=== PATIENT | female | born 1995 | race Caucasian/White ===

== ENCOUNTER 2017-09-19 07:31 | Emergency (ER) | payer OTHER ==
--- NOTE | 2017-09-19 07:48 | ED Physician Documentation ---
PD HPI NVD - Stated complaint Stated Complaint: VOMITTING BLOOD,STOMACH-CHEST PX,8WKS PG - Chief complaint Chief Complaint: Abd Pain - History obtained from History obtained from: Patient - History of Present Illness Timing - onset: Today Timing - details: Abrupt onset (she has had nausea at time with early . Had onset of nausea and vomited bilious emesis this morning, then had vomiting of red blood. She then felt that she was spitting up some wisps of blood after that for a few minutes. Had some epigastric pain moderately. Concerned about vomiting blood. Has not had further emesis. Still some nausea. She is early , about 8 1/2 weeks, and denies lower abd pain, vaginal bleeding nor discharge.) Associated symptoms: Abdominal pain, Hematemesis (once this morning after a bilious forceful emesis.), Loss of appetite. No: Fever, Chest pain, Melena Contributing factors: No: Sick contact, Bad food, Travel Similar symptoms before: No diagnosis (had an episode of upper abd pain few months ago thought to be gastritis but only hurt for few days and no vomiting with it.) Recently seen: Not recently seen Review of Systems Constitutional: denies: Fever, Chills Nose: denies: Rhinorrhea / runny nose, Congestion Throat: denies: Sore throat Respiratory: denies: Cough GI: reports: Abdominal Pain, Nausea, Vomiting. denies: Abdominal Swelling, Diarrhea, Bloody / black stool : denies: Dysuria, Frequency Neurologic: denies: Generalized weakness, Near syncope Endocrine: denies: Easy bruising / bleeding Immunocompromised: denies: Immunocompromised PD PAST MEDICAL HISTORY - Past Medical History Cardiovascular: None Respiratory: None Neuro: None Endocrine/Autoimmune: None GI: None - Present Medications Home Medications: Ambulatory Orders Medication Instructions Recorded Confirmed Ondansetron HCl [Zofran] 4 mg PO Q6H PRN #20 tablet 09/19/17 [id number]/Omega3/Dha/Fish Oil 1 tab PO DAILY 09/19/17 [ Gummies] Sucralfate 1 gm PO TID #15 tablet 09/19/17 raNITIdine [Zantac] 150 mg PO BID #30 tablet 09/19/17 - Allergies Allergies/Adverse Reactions: Allergies Allergy/AdvReac Type Severity Reaction Status Date / Time No Known Drug Allergies Allergy Verified 09/19/17 07:41 PD ED PE NORMAL - Vitals Vital signs reviewed: Yes - General General: Alert and oriented X 3, No acute distress, Well developed/nourished - HEENT HEENT: Moist mucous membranes, Pharynx benign - Neck Neck: Supple, no meningeal sign, No adenopathy - Cardiac Cardiac: RRR, No murmur - Respiratory Respiratory: Clear bilaterally - Abdomen Abdomen: Normal bowel sounds, Soft, Non distended, No organomegaly, Other (mild tender epigastric without guarding nor percussion tenderness. ) - Female Female : Deferred, Other (bedside U/S showed IUP at 8 weeks by CRL with normal gestational sac, no free fluid, and good heart rate. ) - Rectal Rectal: Deferred - Back Back: No CVA TTP - Derm Derm: Normal color, Warm and dry - Neuro Neuro: Alert and oriented X 3, No motor deficit, Normal speech - Psych Psych: Normal mood, Normal affect Results - Vitals Vitals: Vital Signs - 24 hr 09/19/17 09/19/17 07:38 09:30 Heart Rate 80 68 Respiratory 16 18 Rate Blood Pressure 121/73 108/91 H O2 Saturation 100 100 Oxygen O2 Source Room air - Labs Labs: Laboratory Tests 09/19/17 09/19/17 08:31 08:31 WBC 10.7 RBC 4.42 Hgb 12.9 Hct 38.6 MCV 87.3 MCH 29.1 MCHC 33.4 RDW 13.4 Plt Count 344 MPV 7.9 Neut # 7.9 H Lymph # 1.9 Latimer # 0.7 Eos # 0.2 Baso # 0.0 Absolute Nucleated RBC 0.00 Nucleated RBC % 0.0 Sodium 133 L Potassium 3.5 Chloride 102 Carbon Dioxide 24 Anion Gap 7.0 BUN 8 Creatinine 0.5 Estimated GFR (MDRD) 156 Glucose 89 Calcium 8.9 Total Bilirubin 0.4 AST 20 ALT 23 Alkaline Phosphatase 66 Total Protein 8.1 Albumin 3.9 Globulin 4.2 Albumin/Globulin Ratio 0.9 L Lipase 17 L PD MEDICAL DECISION MAKING - ED course Complexity details: reviewed results, considered differential (presume some gastritis and nausea related to . The red blood vomiting likely a mucosal tear from first emesis. She said she was spitting up some blood after emesis, so could even consider nasopharyngeal bleeding instead. ), d/w patient Departure - Departure Disposition: 01 Home, Self Care Clinical Impression: Hematemesis with nausea Gastritis Qualifiers: Gastritis type: other gastritis Chronicity: acute Gastritis bleeding: with bleeding Qualified Code(s): K29.01 - Acute gastritis with bleeding Qualifiers: Weeks of gestation: 8 weeks Qualified Code(s): Z3A.08 - 8 weeks gestation of Condition: Stable Record reviewed to determine appropriate education?: Yes Instructions: ED Gastritis, ED Bleed UGI Stable Follow-Up: MANUEL SWEENEY MD [Primary Care Provider] - Prescriptions: Ondansetron HCl [Zofran] 4 mg PO Q6H PRN #20 tablet PRN Reason: Nausea / Vomiting raNITIdine [Zantac] 150 mg PO BID #30 tablet Sucralfate 1 gm PO TID #15 tablet Comments: Drink lots of fluids. Presume your stomach is irritated with the vomiting that you had, and the abrupt bleeding likely was a small blood vessel that was irritated open. These will typically stop bleeding and do okay. Will treat the stomach irritation however with acid reducing medicine as well as something to coat it. I prescribed ranitidine twice daily for the next 2 weeks and sucralfate 3 times a day for the next 5 days. Use Tylenol if needed for pains. He likely will have some brief dark stools later today or tomorrow and then they should clear. Recheck if persistent vomiting, persistent dark stools or increased belly pain. Use ondansetron if needed for nausea. Follow-up with your primary care next week, call for an appointment. Discharge Date/Time: 09/19/17 09:35
[2017-09-19] MEDS ORDERED: LIDOCAINE VISCOUS 2% 15 ML UDC MM STA (08:16)
[2017-09-19] MEDS ORDERED: ACETAMINOPHEN 325 MG TABLET PO STA (08:16)
[2017-09-19] MEDS ORDERED: FAMOTIDINE 20 MG TABLET PO STA (08:16)
[2017-09-19] MEDS ORDERED: MAG HYDROX/AL HYDROX/SIMETH 30 ML UDC PO STA (08:16)
[2017-09-19 08:34] LABS: BASOPHILS % (AUTO) 0.4 %; EOSINOPHILS # (AUTO) 0.2 10^3/uL (0.0-0.7); EOSINOPHILS % (AUTO) 1.5 %; HGB - HEMOGLOBIN 12.9 g/dL (12.0-16.0); LYMPHOCYTES # (AUTO) 1.9 10^3/uL (1.5-3.5); LYMPHOCYTES % (AUTO) 17.3 %; MEAN CORPUSCULAR HEMOGLOBIN 29.1 pg (27.0-31.0); MEAN CORPUSCULAR HGB CONC 33.4 g/dL (32.0-36.0); MEAN CORPUSCULAR VOLUME 87.3 fL (81.0-99.0); MEAN PLATELET VOLUME 7.9 fL (7.9-10.8); MONOCYTES # (AUTO) 0.7 10^3/uL (0.0-1.0); MONOCYTES % (AUTO) 6.8 %; NEUTROPHILS # (AUTO) 7.9 10^3/uL (1.5-6.6); PLT - PLATELET COUNT 344 10^3/uL (130-450); RED BLOOD COUNT 4.42 10^6/uL (4.20-5.40); RED CELL DISTRIBUTION WIDTH 13.4 % (12.0-15.0); WHITE BLOOD COUNT 10.7 x10^3/uL (4.8-10.8)
[2017-09-19 08:53] LABS: ALBUMIN 3.9 g/dL (3.2-5.5); ALBUMIN/GLOBULIN RATIO 0.9 (1.0-2.2); BILIRUBIN,TOTAL 0.4 mg/dL (0.2-1.0); CALCIUM 8.9 mg/dL (8.5-10.3); CREATININE 0.5 mg/dL (0.4-1.0); TOTAL PROTEIN 8.1 g/dL (6.7-8.2)
[2017-09-19 09:31] VITALS: BP 108/91
== END 2017-09-19 09:35 | disposition home or self-care (01) ==
LOC: ED 07:31
DX: O99.611 Diseases of the digestive system complicating pregnancy, first trimester (principal); K29.01 Acute gastritis with bleeding; K92.0 Hematemesis; Z3A.08 8 weeks gestation of pregnancy
CPT/HCPCS: 36415; 80053; 83690; 85025; 99283; A9270

== ENCOUNTER 2018-04-09 21:05 | Outpatient (CLI) | payer OTHER ==
[2018-04-09 21:22] VITALS: BP 123/75
== END 2018-04-09 22:20 | disposition home or self-care (01) ==
LOC: WFO 21:05 → FBP 21:06 → WFO 22:20
PROVIDERS: ATTEND Obstetrics & Gynecology
DX: Z34.83 Encounter for supervision of other normal pregnancy, third trimester (principal)
CPT/HCPCS: 99213

== ENCOUNTER 2018-04-26 21:30 | Outpatient (CLI) | payer OTHER ==
[2018-04-26 23:26] VITALS: BP 122/73
== END 2018-04-26 23:00 | disposition home or self-care (01) ==
LOC: WFO 21:30 → FBP 21:32 → WFO 23:00
PROVIDERS: ATTEND Obstetrics & Gynecology
DX: Z34.03 Encounter for supervision of normal first pregnancy, third trimester (principal)
CPT/HCPCS: 99213

== ENCOUNTER 2018-05-15 23:01 | Emergency (ER) | payer OTHER ==
[2018-05-15 23:09] VITALS: BP 114/67
--- NOTE | 2018-05-15 23:14 | ED Physician Documentation ---
PD HPI FEVER - Stated complaint Stated Complaint: FEVER - Chief complaint Chief Complaint: Fever - History obtained from History obtained from: Patient - History of Present Illness Timing - onset: Last night Timing details: Abrupt onset Pain level now: 5 Associated symptoms: Chills, Sweats, Rash/skin lesion (left breast erythema). No: Dry cough, Productive cough Recently seen: Not recently seen - Additional information Additional information: fever Tmax 102 since last night associated with left breast pain, redness, swelling. She is breast feeding her 3-week old Review of Systems Constitutional: reports: Fever, Chills, Sweats Throat: denies: Sore throat Respiratory: reports: Reviewed and negative GI: reports: Reviewed and negative PD PAST MEDICAL HISTORY - Past Medical History Cardiovascular: None Respiratory: None Endocrine/Autoimmune: None GI: None - Past Surgical History Past Surgical History: No - Present Medications Home Medications: Ambulatory Orders Medication Instructions Recorded Confirmed Dicloxacillin Sodium 500 mg PO Q6HR #27 capsule 05/15/18 - Allergies Allergies/Adverse Reactions: Allergies Allergy/AdvReac Type Severity Reaction Status Date / Time No Known Drug Allergies Allergy Verified 05/15/18 23:08 - Social History Does the pt smoke?: No Smoking Status: Never smoker Does the pt drink ETOH?: No Does the pt have substance abuse?: No - Immunizations Immunizations are current?: Yes PD ED PE NORMAL - Vitals Vital signs reviewed: Yes - General General: Alert and oriented X 3, No acute distress, Well developed/nourished - Derm Derm: Other (left breast erythema (see below)) - Free text exam Free text exam: left breast (exam performed with environmental test technician: SHAUN Rooney): mild erythema, mild tend erness adjacent and immediately superior to left areola. No fluctuance, no palpable margins to suggest abscess Results - Vitals Vitals: Vital Signs - 24 hr 05/15/18 23:04 Temperature 100.1 C H Heart Rate 103 H Respiratory 16 Rate Blood Pressure 114/67 O2 Saturation 98 Oxygen O2 Source Room air PD MEDICAL DECISION MAKING - ED course Complexity details: considered differential, d/w patient Departure - Departure Disposition: 01 Home, Self Care Clinical Impression: Mastitis Condition: Good Instructions: ED Breast Infec Follow-Up: MANUEL SWEENEY MD [Primary Care Provider] - (3-4 days if symptoms have not improved) Prescriptions: Dicloxacillin Sodium 500 mg PO Q6HR #27 capsule Discharge Date/Time: 05/15/18 23:53
[2018-05-15] MEDS: DICLOXACILLIN 250 MG CAPSULE PO STA (23:50)
== END 2018-05-15 23:53 | disposition home or self-care (01) ==
LOC: ED 23:01
DX: N61.0 Mastitis without abscess (principal)
CPT/HCPCS: 99283; A9270

== ENCOUNTER 2019-01-12 17:38 | Emergency (ER) | payer OTHER ==
--- NOTE | 2019-01-12 21:32 | ED Physician Documentation ---
History of Present Illness - Stated complaint Stated Complaint: THROAT PX - Chief complaint Chief Complaint: Heent - Additonal information Additional information: This is a 23-year-old female who denies past medical history who presents with sore throat for several days. Patient initially began having some sore throat and fever 2 to 3 days ago, the sore throat has progressed to the point where now she has pain when she eats. When she swallows fluids she also has some pain. She denies change in her voice, but states that she is speaking softly because her throat is sore. She has not felt febrile today. She states the left side of her throat hurts more than the right. No cough, no congestion. No chest pain or shortness of breath, no breathing difficulty. Review of Systems Constitutional: reports: Fever Throat: reports: Sore throat Cardiac: denies: Chest pain / pressure Respiratory: denies: Dyspnea GI: denies: Abdominal Pain PD PAST MEDICAL HISTORY - Past Medical History Cardiovascular: None Respiratory: None Endocrine/Autoimmune: None GI: None - Past Surgical History Past Surgical History: No - Present Medications Home Medications: Ambulatory Orders Medication Instructions Recorded Confirmed Dicloxacillin Sodium 500 mg PO Q6HR #27 capsule 05/15/18 Clindamycin HCl [Clindamycin 300MG 300 mg PO TID #30 capsule 01/12/19 CAP] - Allergies Allergies/Adverse Reactions: Allergies Allergy/AdvReac Type Severity Reaction Status Date / Time No Known Drug Allergies Allergy Verified 01/12/19 17:56 - Social History Does the pt smoke?: No Smoking Status: Never smoker Does the pt drink ETOH?: No Does the pt have substance abuse?: No - Immunizations Immunizations are current?: Yes - POLST Patient has POLST: No PD ED PE NORMAL - Vitals Vital signs reviewed: Yes - General General: Alert and oriented X 3, No acute distress - HEENT HEENT: Other (Posterior pharynx is erythematous, tonsils are edematous bilaterally with exudates. Uvula is midline, there is no asymmetric swelling of the tonsillar pillars. Airway is widely patent. Anterior cervical lymphadenop athy present bilaterally.) - Neck Neck: Supple, no meningeal sign - Cardiac Cardiac: No murmur - Respiratory Respiratory: No respiratory distress - Abdomen Abdomen: Soft, Non distended - Derm Derm: Warm and dry - Extremities Extremities: No deformity - Neuro Neuro: Alert and oriented X 3 - Psych Psych: Normal mood, Normal affect Results - Vitals Vitals: Vital Signs - 24 hr 01/12/19 17:54 Temperature 37.9 C H Heart Rate 90 Respiratory 19 Rate Blood Pressure 116/75 O2 Saturation 100 Oxygen O2 Source Room air - Labs Labs: Laboratory Tests 01/12/19 17:58 Group A Strep Rapid Negative PD MEDICAL DECISION MAKING - ED course Complexity details: considered differential (Strep throat, tonsillitis, peritonsillar abscess, peritonsillar cellulitis, Waylon's angina, deep space infection, abscess) ED course: Patient presents with worsening sore throat, in the absence of other URI symptoms. Her strep is negative, but I have a high suspicion for a bacterial tonsillitis. Her tonsils appear symmetric at this time, I do not see signs of DOG GROOMER on exam, however given she has increased pain on the left side, fever, and exudates, I think she is at risk for DOG GROOMER and will treat with a course of clindamycin. She is not . She has excellent mobility of her jaw, no trismus, her vital signs are unremarkable, other than her temperature 37.9, she is well-appearing. I have low suspicion for deep space infection, abscess, and she has no clinical signs for Waylon's angina. She was given the first dose of clindamycin here, as well as 10 mg dose of dexamethasone for inflammation. I reviewed return precautions including worsening pain, swelling, difficult he breathing, difficulty drinking fluids, vomiting, or any other concerning symptoms. I recommended follow-up with her primary care provider. Patient agreed to this plan was discharged Departure - Departure Disposition: 01 Home, Self Care Clinical Impression: Pharyngitis Qualifiers: Pharyngitis/tonsillitis etiology: unspecified etiology Qualified Code(s): J02.9 - Acute pharyngitis, unspecified Condition: Good Instructions: ED Strep Pharyngitis Poss Follow-Up: MANUEL SWEENEY MD [Primary Care Provider] - Within 1 week (With any concerning symptoms) Prescriptions: Clindamycin HCl [Clindamycin 300MG CAP] 300 mg PO TID #30 capsule Comments: You were seen today for sore throat. I am concerned this may be due to strep or another bacterial infection. Please take the antibiotic prescribed, if you have worsening symptoms, any difficulty breathing, or inability to drink fluids, return to the emergency department.
[2019-01-12] MEDS ORDERED: CHERRY SYRUP 10 ML UDC PO ONE (21:47)
[2019-01-12] MEDS ORDERED: DEXAMETHASONE 10 MG/ML VIAL PO STA (21:47)
[2019-01-12] MEDS ORDERED: CLINDAMYCIN 150 MG CAPSULE PO STA (21:47)
[2019-01-12 22:32] VITALS: BP 130/73
== END 2019-01-12 22:32 | disposition home or self-care (01) ==
LOC: ED 17:38
DX: J02.9 Acute pharyngitis, unspecified (principal)
CPT/HCPCS: 87070; 87430; 99283; A9270

== ENCOUNTER 2019-07-04 05:27 | Emergency (ER) | payer OTHER ==
[2019-07-04] MEDS ORDERED: SODIUM CHLORIDE 0.9% 1,000 ML IV STA (06:28)
[2019-07-04] MEDS ORDERED: ONDANSETRON 4 MG/2 ML VIAL IVP STA (06:28)
[2019-07-04 06:45] LABS: BASOPHILS # (AUTO) 0.1 10^3/uL (0.0-0.1); BASOPHILS % (AUTO) 0.4 %; EOSINOPHILS # (AUTO) 0.1 10^3/uL (0.0-0.7); EOSINOPHILS % (AUTO) 0.6 %; HGB - HEMOGLOBIN 14.3 g/dL (12.0-16.0); LYMPHOCYTES # (AUTO) 1.3 10^3/uL (1.5-3.5); LYMPHOCYTES % (AUTO) 8.7 %; MEAN CORPUSCULAR HEMOGLOBIN 26.6 pg (27.0-31.0); MEAN CORPUSCULAR HGB CONC 32.1 g/dL (32.0-36.0); MEAN CORPUSCULAR VOLUME 82.7 fL (81.0-99.0); MEAN PLATELET VOLUME 9.9 fL (7.9-10.8); MONOCYTES # (AUTO) 0.8 10^3/uL (0.0-1.0); MONOCYTES % (AUTO) 5.5 %; NEUTROPHILS # (AUTO) 12.3 10^3/uL (1.5-6.6); NEUTROPHILS % (AUTO) 84.3 %; PLT - PLATELET COUNT 438 10^3/uL (130-450); RED BLOOD COUNT 5.38 10^6/uL (4.20-5.40); RED CELL DISTRIBUTION WIDTH 14.8 % (12.0-15.0); WHITE BLOOD COUNT 14.5 x10^3/uL (4.8-10.8)
[2019-07-04 06:58] LABS: ALBUMIN 4.2 g/dL (3.2-5.5); BILIRUBIN,TOTAL 0.6 mg/dL (0.2-1.0); CALCIUM 9.3 mg/dL (8.5-10.3); CREATININE 0.6 mg/dL (0.4-1.0); TOTAL PROTEIN 8.5 g/dL (6.7-8.2)
[2019-07-04] MEDS ORDERED: KETOROLAC 30 MG/ML VIAL IVP STA (08:03)
[2019-07-04 08:27] VITALS: BP 109/61
--- NOTE | 2019-07-04 09:31 | ED Physician Documentation ---
PD HPI NVD - Stated complaint Stated Complaint: ABD PX/VOMITING - Chief complaint Chief Complaint: Abd Pain - History obtained from History obtained from: Patient - History of Present Illness Timing - onset: Enter time (03:00), Today Timing - details: Abrupt onset Pain level now: 2 Associated symptoms: Abdominal pain (cramping, intermittent). No: Fever Improved by: Other (no ameliorating factors) Worsened by: Other (no exacerbating factors) Recently seen: Not recently seen - Additonal information Additional information: woke from sleep 3AM with nausea, vomiting and intermittent generalized abdominal cramping that is most pronounced in epigastrium. symptoms progressed to point unable to tolerate sips of liquids Review of Systems Constitutional: reports: Reviewed and negative GI: reports: Abdominal Pain, Nausea, Vomiting, Diarrhea (single episode while awaiting evaluation in ED) PD PAST MEDICAL HISTORY - Past Medical History Cardiovascular: None Respiratory: None Endocrine/Autoimmune: None GI: None - Past Surgical History Past Surgical History: No - Present Medications Home Medications: Ambulatory Orders Medication Instructions Recorded Confirmed Dicloxacillin Sodium 500 mg PO Q6HR #27 capsule 05/15/18 Clindamycin HCl [Clindamycin 300MG 300 mg PO TID #30 capsule 01/12/19 CAP] Metoclopramide [Reglan] 10 mg PO Q6H PRN #10 tablet 07/04/19 Ondansetron Odt [Zofran] 4 mg TL Q6H PRN #10 tablet 07/04/19 - Allergies Allergies/Adverse Reactions: Allergies Allergy/AdvReac Type Severity Reaction Status Date / Time No Known Drug Allergies Allergy Verified 01/12/19 17:56 - Social History Does the pt smoke?: No Smoking Status: Never smoker Does the pt drink ETOH?: No Does the pt have substance abuse?: No - Immunizations Immunizations are current?: Yes - POLST Patient has POLST: No PD ED PE NORMAL - Vitals Vital signs reviewed: Yes - General General: Alert and oriented X 3, No acute distress, Well developed/nourished - HEENT HEENT: Moist mucous membranes - Neck Neck: Supple, no meningeal sign - Cardiac Cardiac: RRR, No murmur - Respiratory Respiratory: No respiratory distress, Clear bilaterally - Abdomen Abdomen: Soft, Non distended, Other (mild epigastric tenderness without rebound or guarding) - Back Back: No CVA TTP Results - Vitals Vitals: Vital Signs - 24 hr 07/04/19 07/04/19 05:32 08:26 Temperature 36.3 C L Heart Rate 94 88 Respiratory 16 18 Rate Blood Pressure 124/95 H 109/61 O2 Saturation 98 100 Oxygen O2 Source Room air - Labs Labs: Laboratory Tests 07/04/19 07/04/19 06:40 06:40 WBC 14.5 H RBC 5.38 Hgb 14.3 Hct 44.5 MCV 82.7 MCH 26.6 L MCHC 32.1 RDW 14.8 Plt Count 438 MPV 9.9 Neut # (Auto) 12.3 H Lymph # (Auto) 1.3 L Bond # (Auto) 0.8 Eos # (Auto) 0.1 Baso # (Auto) 0.1 Absolute Nucleated RBC 0.00 Nucleated RBC % 0.0 Sodium 138 Potassium 4.0 Chloride 103 Carbon Dioxide 25 Anion Gap 10.0 BUN 14 Creatinine 0.6 Estimated GFR (MDRD) 124 Glucose 116 H Calcium 9.3 Total Bilirubin 0.6 AST 17 ALT 19 Alkaline Phosphatase 80 Total Protein 8.5 H Albumin 4.2 Globulin 4.3 H Albumin/Globulin Ratio 1.0 Lipase 25 PD MEDICAL DECISION MAKING - ED course Complexity details: reviewed old records, reviewed results, re-evaluated patient, considered differential, d/w patient ED course: reassuring lab work, mild leukocytosis noted. on reevaluation after IV fluids and zofran, she reports resolution of nausea. discussed analgesic options on initial H&P, but she declined at that time, preferring to focus on control of nausea/vomiting. on reevaluation, she requests analgesia for recurrence of epigastric discomfort and toradol given. I performed bedside US of RUQ, gallbladder easily imaged and no evidence if calculi nor sludge. negative sonographic Gheens sign Departure - Departure Disposition: 01 Home, Self Care Clinical Impression: Vomiting Qualifiers: Vomiting type: unspecified Vomiting Intractability: non-intractable Nausea presence: with nausea Qualified Code(s): R11.2 - Nausea with vomiting, unspecified Condition: Good Instructions: ED Diet Vomiting Diarrhea, ED Vomiting Diarrhea Nonspecific Ad Prescriptions: Ondansetron Odt [Zofran] 4 mg TL Q6H PRN #10 tablet PRN Reason: Nausea / Vomiting Discharge Date/Time: 07/04/19 08:33
== END 2019-07-04 08:33 | disposition home or self-care (01) ==
LOC: ED 05:27
DX: R11.2 Nausea with vomiting, unspecified (principal); R10.13 Epigastric pain; R19.7 Diarrhea, unspecified; E87.6 Hypokalemia
CPT/HCPCS: 36415; 80053; 83690; 85025; 96361; 96374; 96375; 99284

== ENCOUNTER 2019-07-04 17:45 | Emergency (ER) | payer OTHER ==
[2019-07-04] MEDS ORDERED: SODIUM CHLORIDE 0.9% 1,000 ML IV ONE (19:23)
--- NOTE | 2019-07-04 19:35 | ED Physician Documentation ---
History of Present Illness - Stated complaint Stated Complaint: VOMITING - Chief complaint Chief Complaint: Abd Pain - Additonal information Additional information: This is a 24-year-old female presents with vomiting and improving abdominal p ain. Patient developed some epigastric abdominal pain associated with vomiting and episode of diarrhea yesterday, she presented to the emergency department early this morning and her labs that time revealed a leukocytosis but her abdominal pain resolved after dose of medications, and she was discharged home with Zofran. She reportedly had a bedside RUQ US that showed no obvious gallbladder pathology. She states that her abdominal pain is actually resolved and she has not take any more pain medications, however she continues to have vomiting and the Zofran does not seem to help much. The pain that she was having is located epigastrium and somewhat in the left upper quadrant, but currently is very mild 1 out of 10. She last took Zofran at around 1300. Her diarrhea was nonbloody and nonbilious, her vomiting was also nonbloody. She denies any history of abdominal surgeries. No dysuria, no lower abdominal discomfort, no pelvic symptoms. Review of Systems Constitutional: denies: Fever Nose: denies: Rhinorrhea / runny nose Cardiac: denies: Chest pain / pressure Respiratory: denies: Dyspnea, Cough GI: reports: Abdominal Pain, Nausea : denies: Dysuria Skin: denies: Rash Neurologic: denies: Generalized weakness Immunocompromised: denies: Immunocompromised PD PAST MEDICAL HISTORY - Past Medical History Past Medical History: No Cardiovascular: None Respiratory: None Endocrine/Autoimmune: None GI: None - Past Surgical History Past Surgical History: No - Present Medications Home Medications: Ambulatory Orders Medication Instructions Recorded Confirmed Dicloxacillin Sodium 500 mg PO Q6HR #27 capsule 05/15/18 Clindamycin HCl [Clindamycin 300MG 300 mg PO TID #30 capsule 01/12/19 CAP] Metoclopramide [Reglan] 10 mg PO Q6H PRN #10 tablet 07/04/19 Ondansetron Odt [Zofran] 4 mg TL Q6H PRN #10 tablet 07/04/19 - Allergies Allergies/Adverse Reactions: Allergies Allergy/AdvReac Type Severity Reaction Status Date / Time No Known Drug Allergies Allergy Verified 01/12/19 17:56 - Social History Does the pt smoke?: No Smoking Status: Never smoker Does the pt drink ETOH?: No Does the pt have substance abuse?: No - Immunizations Immunizations are current?: Yes - POLST Patient has POLST: No PD ED PE NORMAL - Vitals Vital signs reviewed: Yes - General General: Alert and oriented X 3, No acute distress - HEENT HEENT: PERRL - Neck Neck: Supple, no meningeal sign - Cardiac Cardiac: Other (Mild tachycardia rate 100 on my examination. No murmurs or rubs) - Respiratory Respiratory: No respiratory distress, Clear bilaterally - Abdomen Abdomen: Soft, Other (Abdomen is soft, flat, normal in appearance. There is mild epigastric and left upper quadrant tenderness with deep palpation, no right upper quadrant discomfort, negative Haley sign. Lower quadrants are completely nontender to deep palpation.) - Derm Derm: Warm and dry - Extremities Extremities: No deformity - Neuro Neuro: Alert and oriented X 3 - Psych Psych: Normal mood, Normal affect Results - Vitals Vitals: Vital Signs - 24 hr 07/04/19 07/04/19 07/04/19 17:57 17:59 20:06 Temperature 36.5 C 36.5 C Heart Rate 108 H 108 H 87 Respiratory 18 18 18 Rate Blood Pressure 100/69 100/69 100/67 O2 Saturation 99 99 100 07/04/19 20:47 Temperature Heart Rate 88 Respiratory 16 Rate Blood Pressure 102/66 O2 Saturation 100 Oxygen O2 Source Room air - Labs Labs: Laboratory Tests 07/04/19 07/04/19 07/04/19 19:38 19:38 19:38 WBC 11.2 H RBC 5.21 Hgb 13.8 Hct 43.0 MCV 82.5 MCH 26.5 L MCHC 32.1 RDW 15.0 Plt Count 401 MPV 9.9 Neut # (Auto) 9.1 H Lymph # (Auto) 1.4 L Bleckley # (Auto) 0.5 Eos # (Auto) 0.0 Baso # (Auto) 0.0 Absolute Nucleated RBC 0.00 Nucleated RBC % 0.0 Sodium 138 Potassium 3.1 L Chloride 104 Carbon Dioxide 25 Anion Gap 9.0 BUN 12 Creatinine 0.6 Estimated GFR (MDRD) 124 Glucose 107 H Calcium 9.1 Total Bilirubin 0.7 AST 16 ALT 17 Alkaline Phosphatase 76 Total Protein 8.4 H Albumin 4.1 Globulin 4.3 H Albumin/Globulin Ratio 1.0 Lipase 21 L Serum HCG, Qual NEGATIVE PD MEDICAL DECISION MAKING - ED course Complexity details: considered differential (Gastroenteritis, pancreatitis, peptic ulcer disease, Electrolyte abnormality, biliary obstruction, cholecystitis, hepatitis, enteritis) ED course: On arrival patient is tachycardic, nontoxic-appearing. She was given IV fluids and Zofran for her symptoms. Labs are drawn and they reveal an improving white blood cell count to 11.2, her abdominal panel is unremarkable other than a mild hypokalemia. Given patient was having nausea, I think she will likely feel worse with potassium supplementation, she would rather drink some potassium rich fluids at home to replete this, and I think is very reasonable. Lipase is normal, hCG is negative. She has no urinary symptoms and no lower abdominal pain or tenderness. Given patient had vomiting and diarrhea is likely that she has a gastroenteritis, however biliary colic or gastritis is also a possibility. This is less likely given that her pain is really in the left upper quadrant and epigastrium and she has no right upper quadrant tenderness on my serial ex aminations. After patient received Reglan she was able to drink fluids without issue, she states he feels well and would like to go home. I discussed that if she is having worsening or not improving symptoms she needs a repeat evaluation and likely an ultrasound. I did prescribe her Reglan, with instructions not to mix it with Zofran at the same time. I reviewed return precautions with the patient and she was discharged home in the care of her . Departure - Departure Disposition: 01 Home, Self Care Clinical Impression: Vomiting Qualifiers: Vomiting type: unspecified Vomiting Intractability: non-intractable Nausea presence: with nausea Qualified Code(s): R11.2 - Nausea with vomiting, unspecified Condition: Good Prescriptions: Metoclopramide [Reglan] 10 mg PO Q6H PRN #10 tablet PRN Reason: Nausea / Vomiting Comments: Your labs appear improved, other than your potassium is a bit low, please drink fluids with potassium in them such as coconut water, or try some potassium rich food like we spoke about. If you are having recurrent or worsening abdominal pain, particularly pain in the right upper quadrant, please return to the emergency department, also return if you are having persistent vomiting despite the medication, or any other concerning symptoms. Discharge Date/Time: 07/04/19 20:47
[2019-07-04 19:44] LABS: BASOPHILS % (AUTO) 0.4 %; EOSINOPHILS % (AUTO) 0.4 %; HGB - HEMOGLOBIN 13.8 g/dL (12.0-16.0); LYMPHOCYTES # (AUTO) 1.4 10^3/uL (1.5-3.5); LYMPHOCYTES % (AUTO) 12.4 %; MEAN CORPUSCULAR HEMOGLOBIN 26.5 pg (27.0-31.0); MEAN CORPUSCULAR HGB CONC 32.1 g/dL (32.0-36.0); MEAN CORPUSCULAR VOLUME 82.5 fL (81.0-99.0); MEAN PLATELET VOLUME 9.9 fL (7.9-10.8); MONOCYTES # (AUTO) 0.5 10^3/uL (0.0-1.0); MONOCYTES % (AUTO) 4.7 %; NEUTROPHILS # (AUTO) 9.1 10^3/uL (1.5-6.6); NEUTROPHILS % (AUTO) 81.7 %; PLT - PLATELET COUNT 401 10^3/uL (130-450); RED BLOOD COUNT 5.21 10^6/uL (4.20-5.40); WHITE BLOOD COUNT 11.2 x10^3/uL (4.8-10.8)
[2019-07-04 20:05] LABS: ALBUMIN 4.1 g/dL (3.2-5.5); BILIRUBIN,TOTAL 0.7 mg/dL (0.2-1.0); CALCIUM 9.1 mg/dL (8.5-10.3); CREATININE 0.6 mg/dL (0.4-1.0); TOTAL PROTEIN 8.4 g/dL (6.7-8.2)
[2019-07-04 20:20] LABS: HCG,QUALITATIVE BLOOD NEGATIVE
[2019-07-04] MEDS ORDERED: ACETAMINOPHEN 500 MG TABLET PO STA (20:36)
[2019-07-04 20:48] VITALS: BP 102/66
== END 2019-07-04 20:47 | disposition home or self-care (01) ==
LOC: ED 17:45
DX: R11.2 Nausea with vomiting, unspecified (principal); E87.6 Hypokalemia; R19.7 Diarrhea, unspecified; R10.13 Epigastric pain
CPT/HCPCS: 36415; 80053; 83690; 84703; 85025; 96360; 96361; 96374; 96375; 99283; 99284; A9270